=== PATIENT | female | born 1955 | race Caucasian/White ===

== ENCOUNTER 2022-06-16 11:44 | Emergency (ER) | payer BC, MEDICARE, OTHER ==
[~2022-06-16] VITALS: Ht 162.6 cm; Wt 95.5 kg
[2022-06-16] MEDS ORDERED: CITA20TA6 PO (12:06)
[2022-06-16] MEDS ORDERED: EPLE25TA PO (12:06)
[2022-06-16] MEDS ORDERED: AMLO-605 PO (12:06)
[2022-06-16] MEDS ORDERED: SEMA0.257 SQ (12:06)
[2022-06-16] MEDS ORDERED: POTA-150 PO (12:06)
[2022-06-16] MEDS ORDERED: CORE12.5 PO (12:06)
[2022-06-16] MEDS ORDERED: SYNT50TA PO (12:06)
[2022-06-16] MEDS ORDERED: GLIM1TAB4 PO (12:06)
[2022-06-16] MEDS ORDERED: LIPI10TA PO (12:06)
[2022-06-16 13:58] LABS: HEMATOCRIT 40.7 % (36.0-47.0); HEMOGLOBIN 13.7 g/dl (12.0-15.5); MEAN CORPUSCULAR HEMOGLOBIN 28.5 pg (27.0-33.0); MEAN CORPUSCULAR HGB CONC 33.7 g/dl (32.0-36.5); MEAN CORPUSCULAR VOLUME 84.8 fl (80.0-96.0); PLATELET COUNT, AUTOMATED 276 10^3/uL (150-450); WHITE BLOOD COUNT 8.6 10^3/uL (4.0-10.0)
[2022-06-16 14:14] LABS: HEMOGLOBIN A1c 6.8 % (4.0-6.0)
[2022-06-16 14:19] LABS: BLOOD UREA NITROGEN 13 MG/DL (9-23); CALCIUM LEVEL 9.4 MG/DL (8.3-10.6); CARBON DIOXIDE LEVEL 28 MMOL/L (20-31); CHLORIDE LEVEL 102 MMOL/L (98-107); CREATININE FOR GFR 0.58 MG/DL (0.55-1.30); GLOMERULAR FILTRATION RATE > 60.0 (>45); GLUCOSE, FASTING 120 MG/DL (74-106); POTASSIUM SERUM 4.3 MMOL/L (3.5-5.1); SODIUM LEVEL 136 MMOL/L (136-145)
[2022-06-16 15:43] VITALS: BP 129/65
== END 2022-06-16 15:45 | disposition home or self-care (01) ==
LOC: M ED 11:44
DX: R53.83 Other fatigue (principal); R25.1 Tremor, unspecified; E11.9 Type 2 diabetes mellitus without complications; I10 Essential (primary) hypertension; K21.9 Gastro-esophageal reflux disease without esophagitis; E03.9 Hypothyroidism, unspecified; Z88.0 Allergy status to penicillin